=== PATIENT | female | born 1995 | race Caucasian/White ===

== ENCOUNTER 2017-04-14 16:30 | Emergency (ER) | payer SELFPAY ==
[2017-04-14 17:06] LABS: BASOPHILS 0.1 % (0-2); EOSINOPHILS 2.5 % (0-7); HEMATOCRIT 35.1 % (36.0-48.0); HEMOGLOBIN 11.8 g/dL (12-16); IMMATURE GRANULOCYTES 0.2 % (0-5); LYMPHOCYTES 26.9 % (15-50); MCH 28.3 pg (26.0-34.0); MCHC 33.6 g/dL (31.0-37.0); MCV 84.2 fL (80.0-100.0); MEAN PLATELET VOLUME 10.1 fL (7.4-10.4); MONOCYTES 8.7 % (2-11); NEUTROPHILS 61.6 % (40-80); PLATELET COUNT 224 10x3/uL (130-400); RBC 4.17 10x6/uL (4.00-5.40); WBC 8.3 10x3/uL (4.8-10.8)
[2017-04-14 17:12] LABS: HCG SERUM POSITIVE (NEGATIVE)
[2017-04-14 17:14] LABS: APPEARANCE HAZY (CLEAR); BILIRUBIN NEGATIVE (NEGATIVE); COLOR STRAW (YELLOW); GLUCOSE NEGATIVE (NEGATIVE); KETONE NEGATIVE (NEGATIVE); LEUKOCYTE ESTERASE NEGATIVE (NEGATIVE); NITRITE NEGATIVE (NEGATIVE); PH 6.5 (5.0-6.0); PROTEIN NEGATIVE (NEGATIVE); SPECIFIC GRAVITY 1.005 (1.005-1.020); UROBILINOGEN NORMAL (NORMAL)
== END 2017-04-14 18:19 | disposition home or self-care (01) ==
LOC: D.ER 16:30
PROVIDERS: Emergency Medicine
DX: O26.891 Other specified pregnancy related conditions, first trimester (principal); Z3A.01 Less than 8 weeks gestation of pregnancy; R10.30 Lower abdominal pain, unspecified

== ENCOUNTER 2017-10-04 23:17 | Outpatient (CLI) | payer SELFPAY ==
[2017-10-05 00:01] LABS: APPEARANCE CLEAR (CLEAR); BILIRUBIN NEGATIVE (NEGATIVE); COLOR DK YELLOW (YELLOW); GLUCOSE NEGATIVE (NEGATIVE); KETONE LARGE mg/dL (NEGATIVE); NITRITE NEGATIVE (NEGATIVE); PROTEIN NEGATIVE (NEGATIVE); UROBILINOGEN NORMAL (NORMAL)
[2017-11-20 19:32] VITALS: BMI 41.0
== END 2017-10-05 01:35 | disposition home or self-care (01) ==
LOC: D.LD 23:17 → D.LDO 23:17
PROVIDERS: Obstetrics & Gynecology
DX: O26.893 Other specified pregnancy related conditions, third trimester (principal); Z3A.22 22 weeks gestation of pregnancy; K30 Functional dyspepsia

== ENCOUNTER 2017-11-16 23:49 | Outpatient (CLI) | payer MEDICAID ==
[2017-11-17 00:40] LABS: APPEARANCE CLEAR (CLEAR); BILIRUBIN NEGATIVE (NEGATIVE); COLOR YELLOW (YELLOW); GLUCOSE 100 mg/dL (NEGATIVE); KETONE NEGATIVE (NEGATIVE); NITRITE NEGATIVE (NEGATIVE); PROTEIN NEGATIVE (NEGATIVE); SPECIFIC GRAVITY 1.005 (1.005-1.020); UROBILINOGEN NORMAL (NORMAL)
[2017-11-17] MEDS ORDERED: PEPCID20 MG PO (01:25)
[2017-11-20 19:32] VITALS: BMI 41.0
== END 2017-11-17 01:20 | disposition home or self-care (01) ==
LOC: D.LDO 23:49 → D.LD 23:50 → D.LDO 11-17 01:20
PROVIDERS: Obstetrics & Gynecology
DX: O26.893 Other specified pregnancy related conditions, third trimester (principal); Z3A.38 38 weeks gestation of pregnancy

== ENCOUNTER 2017-11-20 18:54 | Inpatient (IN) | payer MEDICAID ==
[~2017-11-20] VITALS: Ht 156.2 cm; Wt 97.1 kg
--- NOTE | ~2017-11-20 | DS ---
PATIENT:EVON LEWIS :89 MEDICAL RECORD: [id number] DISCHARGE SUMMARY ADMISSION DATE: 11/20/17 DISCHARGE DATE: 11/23/17 DATE OF ADMISSION: 11/20/2017. DATE OF DISCHARGE: 11/23/2017. ADMISSION DIAGNOSIS: at term. DISCHARGE DIAGNOSIS: Mother delivered at term. PROCEDURE: Vaginal delivery. ATTENDING: Leela Vaca MD HISTORY OF PRESENT ILLNESS: See the H&P in the chart. SUMMARY OF HOSPITALIZATION: The patient was admitted and underwent induction of labor and delivered without incident. The patient was doing well at the time of discharge with minimal to moderate lochia. The patient has been given standard precautions and has been counseled in regards to contraception. The patient will use condoms for now and will further discuss long-term contraception at the followup in 6 weeks. TRANSINT:[id number] Voice Confirmation ID: [id number] DOCUMENT ID: [id number] LEELA VACA MD at 0805 CC: [id number] DICTATION DATE: 01/02/18 09 RAILROAD PASSENGER AGENT: 01/02/18 1319 DIS IN 11/23/17 [address] [place] [address]
--- NOTE | ~2017-11-20 | OP ---
PATIENT NAME: EVON LEWIS MEDICAL RECORD: [id number] :89 LOCATION:[id number] ADMISSION DATE:11/20/17 SURGEON: JONATHAN VACA MD DATE OF OPERATION: 11/21/2017 PREDELIVERY DIAGNOSIS: at term. POSTDELIVERY DIAGNOSIS: Mother delivered at term. PROCEDURE PERFORMED: Induction of labor with vaginal delivery. ATTENDING: Jonathan Vaca MD ANESTHESIA: Continuous lumbar epidural. ANESTHESIOLOGIST: Dr. James. FINDINGS: Viable male , DELFINO presentation, Apgars were 9 and 9, weight 7 pounds 7 ounces. A second-degree laceration of the perineum repaired with 3-0 Vicryl and 3-0 chromic. First-degree laceration of labia minora on the left side below the clitoral streeter repaired with 4-0 chromic. Placenta is spontaneous and intact. ESTIMATED BLOOD LOSS: 350 cc. DISPOSITION: Mother and infant recovered in the room. TRANSINT:[id number] Voice Confirmation ID: [id number] DOCUMENT ID: [id number] JONATHAN VACA MD at 1648 CC: [id number] DICTATION DATE: 11/21/17 1800 MOLD MOVER: 11/21/17 2100 ADM IN [id number] [place] [address]
[~2017-11-20 18:54] MED LIST: PEPCID20 MG PO
[2017-11-20 19:32] VITALS: BP 131/78; Ht 156.2 cm; Wt 97.1 kg
[2017-11-20 20:39] LABS: HEMATOCRIT 33.8 % (36.0-48.0); HEMOGLOBIN 10.9 g/dL (12-16); MCH 27.1 pg (26.0-34.0); MCHC 32.2 g/dL (31.0-37.0); MCV 84.1 fL (80.0-100.0); MEAN PLATELET VOLUME 10.7 fL (7.4-10.4); RBC 4.02 10x6/uL (4.00-5.40); RDW 13.9 % (11.5-14.5)
[2017-11-20 21:00] LABS: APPEARANCE CLEAR (CLEAR); BILIRUBIN NEGATIVE (NEGATIVE); COLOR YELLOW (YELLOW); GLUCOSE NEGATIVE (NEGATIVE); KETONE NEGATIVE (NEGATIVE); NITRITE NEGATIVE (NEGATIVE); PROTEIN NEGATIVE (NEGATIVE); SPECIFIC GRAVITY 1.015 (1.005-1.020); UROBILINOGEN NORMAL (NORMAL)
[2017-11-20 21:02] LABS: BACTERIA FEW /hpf (NONE SEEN); EPITHELIAL CELLS 0-5 /hpf (0-5); WHITE CELLS - URINE 0-5 /hpf (0-5)
[2017-11-21 21:14] VITALS: BP 117/65
[2017-11-22 07:13] LABS: HEMATOCRIT 29.7 % (36.0-48.0); HEMOGLOBIN 9.4 g/dL (12-16); MCHC 31.6 g/dL (31.0-37.0); MCV 85.3 fL (80.0-100.0); MEAN PLATELET VOLUME 10.2 fL (7.4-10.4); RBC 3.48 10x6/uL (4.00-5.40); RDW 14.4 % (11.5-14.5)
[2017-11-22 08:32] VITALS: BP 119/65
[2017-11-22 09:09] LABS: RAPID PLASMA REAGIN Non Reactive (Non Reactive)
[2017-11-22 13:30] VITALS: BP 136/74
[2017-11-22 19:05] VITALS: BP 128/68
[2017-11-23 07:20] VITALS: BP 122/68
[2017-11-23] MEDS ORDERED: TYLENOL W/CODEI1 TAB PO (16:28)
[2017-11-23] MEDS ORDERED: SPRINTEC1 TAB PO (16:28)
== END 2017-11-23 18:45 | disposition home or self-care (01) | DRG 775 ==
LOC: D.LD 18:54
PROVIDERS: Obstetrics & Gynecology
PROC: 10907ZC Drainage of Amniotic Fluid, Therapeutic from Products of Conception, Via Natural or Artificial Opening (ICD-10-PCS; principal; 2017-11-21)
PROC: 10E0XZZ Delivery of Products of Conception, External Approach (ICD-10-PCS; 2017-11-21)
PROC: 0KQM0ZZ Repair Perineum Muscle, Open Approach (ICD-10-PCS; 2017-11-21)
DX: O99.824 Streptococcus B carrier state complicating childbirth (principal); Z3A.39 39 weeks gestation of pregnancy; Z37.0 Single live birth; O70.1 Second degree perineal laceration during delivery